=== PATIENT | female | born 1990 | race Caucasian/White ===

== ENCOUNTER → 2020-05-18 | Outpatient (CLI) | payer MEDICAID | LOC: M.LAB 17:04 | PROVIDERS: ATTEND Orthopaedic Surgery | DX: Z01.818 Encounter for other preprocedural examination (principal); Z11.59 Encounter for screening for other viral diseases ==

== ENCOUNTER → 2020-05-23 | Day surgery (SDC) | payer MEDICAID ==
[~2020-05-23] MED LIST: ADDERALL XR 2525 MG PO; LAMOTRIGINE200 MG PO; PROPRANOLOL 1010 M1 PO; TEMAZEPAM15 MG PO; VRAYLAR4.5 MG PO
--- NOTE | 2020-05-24 10:21 | OP ---
[address] [address] OPERATIVE REPORT Name: BRAYDON PARR Room: [facility]#: [id number] Admission: 05/23/20 Attend Phys: Alex Sparrow II Discharge: Date of : 86 Report #: [id number] THIS REPORT FOR: //name// cc: Narayan Arteaga MD, Daniel T. MD ~ THIS REPORT FOR: //name// CC: Narayan Sparrow DATE OF SERVICE: 05/23/2020 PREOPERATIVE DIAGNOSIS: Right lateral malleolus fracture. POSTOPERATIVE DIAGNOSIS: Right lateral malleolus fracture. PROCEDURE: Right lateral malleolus fracture open reduction and internal fixation. SURGEON: Alex Sparrow II, DO. [employer] SUPERINTENDENT: ATIYA Dodge. ANESTHESIA: Per operative record. ESTIMATED BLOOD LOSS: Minimal. ANTIBIOTICS: Per operative record. DRAINS: None. COMPLICATIONS: None. CONDITION OF THE PATIENT: Stable to recovery room. DESCRIPTION OF PROCEDURE: The patient was taken to the operative suite and placed supine on the operative table, given appropriate anesthesia. The patient had a well-padded tourniquet applied to the affected lower extremity, which was inflated to 300 mmHg after Esmarch exsanguination for duration of procedure. Leg was sterilely prepped and draped. Surgery began by incision over the fibula laterally. This was carried down to the subcutaneous tissues. fracture was visualized with fluoroscopic evaluation and reduced in near anatomic position, held with a lobster claw forceps and the plate was applied. It was then secured to the fibula with appropriate locking and nonlocking screws. This was visualized in AP and lateral views to be in anatomic alignment. Cotton test was performed to assess the syndesmosis and it [place] [address] OPERATIVE REPORT Name: BRAYDON PARR Room: [facility]#: [id number] Admission: 05/23/20 Attend Phys: Alex Sparrow II Discharge: Date of : 86 Report #: [id number] the medial joint. Irrigation was then performed of the wound. It was then closed with subcuticular Vicryl stitch and Monocryl in running fashion. Sterile dressing and splint and Dermabond was applied. The patient was transported to recovery room in stable condition. Counts were correct throughout the procedure. <ELECTRONICALLY SIGNED> By: Alex Saprrow II, DO 05/24/20 1021 [id number] Sparrow II, DO /nt
== END | disposition home or self-care (01) ==
LOC: M.SUR 10:15
PROVIDERS: ATTEND Orthopaedic Surgery
DX: S82.61XA Displaced fracture of lateral malleolus of right fibula, initial encounter for closed fracture (principal); F41.9 Anxiety disorder, unspecified; F32.9 Major depressive disorder, single episode, unspecified; I10 Essential (primary) hypertension; Z88.2 Allergy status to sulfonamides; Z88.8 Allergy status to other drugs, medicaments and biological substances; Z79.899 Other long term (current) drug therapy; X58.XXXA Exposure to other specified factors, initial encounter; Y93.89 Activity, other specified; Y92.89 Other specified places as the place of occurrence of the external cause; Y99.8 Other external cause status